=== PATIENT | male | born 1975 | race Caucasian/White ===

== ENCOUNTER 2023-11-17 06:18 | Day surgery (SDC) | payer MEDICAID ==
[2023-11-17] VITALS (8 sets, daily range): BP systolic 129–166; BP diastolic 64–105; PULSE 80–94; RESP 12–24; O2SAT 90–99
[~2023-11-17] VITALS: Ht 165.1 cm; Wt 108.9 kg
[~2023-11-17 06:18] MED LIST: ASPI-543 PO; ATOR40TA52 PO; CLON-499 PO; EMPA1TAB3 PO; HYDR25TA4 PO; LOSA50TA46 PO; METF-370 PO; METO25TA5 PO; TICA90TA PO
[2023-11-17] MEDS ORDERED: hydrALAZINE HCL 20 MG/ML VL IV ONE (08:45)
[2023-11-17] MEDS ORDERED: ANGIOMAX 250 MG VIAL IV ONE ×2 (09:07→10:52)
[2023-11-17] MEDS ORDERED: HEPARIN SODIUM (PORCINE) 5000 UNITS/ML 1ML VIAL ONE (09:07)
[2023-11-17] MEDS ORDERED: VERAPAMIL 2.5MG/ML INJ 2ML VIAL IV ONE (09:07)
[2023-11-17] MEDS ORDERED: SODIUM CHL 0.9% 50 ML ONE ×2 (09:08→10:52)
[2023-11-17] MEDS ORDERED: fentaNYL CITRATE 100 MCG/2 ML VL ONE (09:08)
[2023-11-17] MEDS ORDERED: LIDOCAINE 2%HCL (LOCAL ANESTH.) INJ 20ML MDV ONE (09:08)
[2023-11-17] MEDS ORDERED: IODIXANOL 320MG/ML 100ML BTL IV ONE ×3 (09:08→11:11)
[2023-11-17] MEDS ORDERED: MIDAZOLAM HCL 2MG/2ML 2ml VIAL (1mg/ml) ONE (09:36)
[2023-11-17] MEDS ORDERED: TICAGRELOR 90 MG TAB ONE ×2 (11:00→11:02)
[2023-11-17] MEDS ORDERED: ASPirin 325 MG TAB ONE (11:00)
[2023-11-17] MEDS ORDERED: hydrALAZINE HCL 20 MG/ML VL ONE (11:20)
== END 2023-11-17 14:06 | disposition home or self-care (01) ==
LOC: CATH 06:18
PROVIDERS: ATTEND Internal Medicine Cardiovascular Disease
DX: I25.10 Atherosclerotic heart disease of native coronary artery without angina pectoris (principal); E78.5 Hyperlipidemia, unspecified; E66.01 Morbid (severe) obesity due to excess calories; Z68.39 Body mass index [BMI] 39.0-39.9, adult; F12.90 Cannabis use, unspecified, uncomplicated; Z72.89 Other problems related to lifestyle; F17.210 Nicotine dependence, cigarettes, uncomplicated; Z79.82 Long term (current) use of aspirin; Z79.899 Other long term (current) drug therapy; Z98.890 Other specified postprocedural states
CPT/HCPCS: 92920; 93458; C1725; C1769; C1874; C1887; C1894; C9600; J0360; J0583; J1644; J2250; J3010; J7030; Q9967; 99152; 99153

== ENCOUNTER 2025-06-01 16:28 | Emergency (ER) | payer MEDICAID ==
[~2025-06-01] VITALS: Ht 165.1 cm; Wt 109.0 kg
[~2025-06-01 16:28] MED LIST changes: +LOSA-534 PO; -LOSA50TA46 PO
[2025-06-01 16:29] VITALS: BP 152/104; TEMP 98.1
--- NOTE | 2025-06-01 16:53 | ED.PDOC ---
Musculoskeletal HPI Comments This is a 49 year old male presenting to the ED with chief complaint of finger amputation. Patient reports that while working on his car transmission an hour ago, it had fell and crushed his left ring finger. Patient relays that the tip of his ring finger was amputated with the fingernail hanging. Patient states that he has no pain at this time and he is diabetic. Patient notes his last Tetanus was when he was a child. Patient denies any severe bleeding or further injury. Chief Complaint: S/P AMPUTATION OF FINGER Time Seen by MD: 16:51 Primary Care Provider: None Reviewed Notes: Nurses Notes, Medications, Allergies Allergies: Coded Allergies: NO KNOWN ALLERGIES (Unverified , 03/04/16) Home Meds Active Scripts Hydrocodone-Acetaminophen (Hydrocodone Bitartrate/AC 5-325 mg) 1 Tab Tab, 1 TAB PO DAILY for 5 Days, #5 TAB Prov:BRITNEY GONZALEZ MD 06/01/25 Amoxicillin Trihydrate (Amoxicillin) 500 Mg Tab, 1 TAB PO TID for 10 Days, #30 TAB Prov:BRITNEY GONZALEZ MD 06/01/25 Clindamycin Hcl (Clindamycin Hcl) 300 Mg Cap, 1 CAP PO TID for 10 Days, #30 CAP Prov:BRITNEY GONZALEZ MD 06/01/25 Reported Medications Ticagrelor Base (BRILINTA) 90 Mg Tab, 60 MG PO BID, TAB 11/16/23 Clonidine Hydrochloride (Clonidine HCl ER) 0.1 Mg Tab, 0.1 MG PO, TAB 11/16/23 Aspirin (Aspir-Low) 81 Mg Tab, 81 MG PO DAILY for 30 Days, MG 11/16/23 Empagliflozin (Jardiance) 25 Mg Tab, 25 MG PO DAILY, TAB 11/16/23 Hydrochlorothiazide (Hydrochlorothiazide) 25 Mg Tab, 25 MG PO DAILY for 30 Days, MG 11/16/23 Metoprolol Tartrate (Metoprolol Tartrate) 25 Mg Tab, 25 MG PO BID for 30 Days, MG 11/16/23 Atorvastatin Calcium (ATORVASTATIN CALCIUM) 40 Mg Tab, 1 TAB PO QPM, #90 TAB 3 Refills 11/16/23 Losartan Potassium (Losartan Potassium) 50 Mg Tab, 50 MG PO DAILY for 30 Days, MG 11/16/23 Metformin Hydrochloride (Metformin Hcl) 500 Mg Tab, 500 MG PO IBID for 30 Days, MG 11/16/23 Information Source: Patient Mode of Arrival: Ambulatory Location: Left Extremity Location: Finger 4 Timing: Hours Prehospital treatment: None Severity: Severe Able to Move Extremity: Yes Pain: None Mechanism: Crush Circumstances: Other (Car transmission fell) Onset of Symptoms: After Trauma DVT Risk Factors: NONE Last Tetanus: > 5 Years, Unknown Past Medical History PAST MEDICAL HISTORY: DM, HTN Surgical History: Denies all surgeries Family History Family History: Unknown Social History Smoker: Cigar Alcohol: Occasionally Drugs: Marijuana Lives In: Home Constitutional: denies: chills, diaphoresis, fatigue, fever, malaise, sweats, weakness, others EENTM: denies: blurred vision, double vision, ear bleeding, ear discharge, ear drainage, ear pain, ear ringing, eye pain, eye redness, hearing loss, mouth pain, mouth swelling, nasal discharge, nose bleeding, nose congestion, nose pain, photophobia, tearing, throat pain, throat swelling, voice changes, others Respiratory: denies: cough, hemoptysis, orthopnea, SOB at rest, shortness of breath, SOB with excertion, stridor, wheezing, others Cardiovascular: denies: chest pain, dizzy spells, diaphoresis, Dyspnea on exertion, edema, irregular heart beat, left arm pain, lightheadedness, palpitations, PND, syncope, others Gastrointestinal: denies: abdomen distended, abdominal pain, blood streaked bowels, constipated, diarrhea, dysphagia, difficulty swallowing, hematemesis, melena, nausea, poor appetite, poor fluid intake, rectal bleeding, rectal pain, vomiting, others Genitourinary: denies: burning, dysuria, flank pain, frequency, hematuria, incontinence, penile discharge, penile sore, pain, testicle pain, testicle swelling, urgency, others Neurological: denies: dizziness, fainting, headache, left sided numbness, left sided weakness, numbness, paresthesia, pre-existing deficit, right sided numbness, right sided weakness, seizure, speech problems, tingling, tremors, w eakness, others Musculoskeletal: denies: back pain, gout, joint pain, joint swelling, muscle pain, muscle stiffness, neck pain, others Integumetry: reports: wounds (left ring fingertip amputation); denies: bruises, change in color, change in hair/nails, dryness, laceration, lesions, lumps, rash, others Allergic/Immunocompromised: denies: Difficulty Healing, Frequent Infections, Hives, Itching, others Hematologic/Lymphatic: denies: anemia, blood clots, easy bleeding, easy bruising, swollen glands, others Endocrine: denies: excessive hunger, excessive sweating, excessive thirst, excessive urination, flushing, intolerance to cold, intolerance to heat, unexplained weight gain, unexplained weight loss, others Psychiatric: denies: anxiety, bipolar disorder, depression, hopeless, panic disorder, schizophrenia, sleepless, suicidal, others All Other Systems: Reviewed and Negative Physical Exam General Appearance: Moderate Distress, Normal HEENT: Normal ENT Inspection, Pharynx Normal, TMs Normal Neck: Full Range of Motion, Non-Tender, Normal, Normal Inspection Respiratory: Chest Non-Tender, Lungs Clear, No Accessory Muscle Use, No Respiratory Distress, Normal Breath Sounds Cardiovascular: No Edema, No JVD, No Murmur, No Gallop, Normal Peripheral Pulses, Regular Rate/Rhythm Breast Exam: Deferred Gastrointestinal: No Organomegaly, Non Tender, No Pulsatile Mass, Normal Bowel Sounds, Soft Genitalia: Deferred Pelvic: Deferred Rectal: Deferred Extremities: No calf tenderness, Normal capillary refill, Normal range of motion, Non-tender, No pedal edema, Other (Left 4th finger proximal amputation exposed) Musculoskeletal : Apperance: Normal Neurologic: Alert, roll winder II-XII nml as Tested, No Motor Deficits, Normal Affect, Normal Mood, No Sensory Deficits Cerebellar Function: Normal Reflexes: Normal Skin: Dry, Normal Color, Warm, Wounds (Left proximal 4th finger distal amputation) Peripheral Pulses: 3+ Radial (R), 3+ Radial (L) Lymphatic: No Adenopathy Was a procedure done? Was a procedure done?: No Differential Diagnosis EXT Differential Diagnosis: Fracture, Sprain, Strain X-Ray, Labs, Meds, VS Vital Signs Date Time Temp Pulse Resp B/P (MAP) Pulse Ox O2 Delivery O2 Flow Rate FiO2 06/01/25 16:29 98.1 81 18 152/104 100 98.1 Current Medications Medications (Trade) Dose Ordered Sig/Collin Route Start Time Stop Time Status Last Admin Diphtheria/ Tetanus/Acell Pertussis (Boostrix T-Dap) 0.5 ml ONCE ONCE IM 06/01/25 17:00 06/01/25 17:01 DC 06/01/25 17:07 Clindamycin HCl (Cleocin Capsule) 300 mg ONCE ONCE PO 06/01/25 17:00 06/01/25 17:01 DC 06/01/25 17:06 Ceftriaxone Sodium (Rocephin) 1,000 mg ONCE ONCE IM 06/01/25 17:00 06/01/25 17:01 DC 06/01/25 17:06 Lidocaine HCl (Xylocaine 1%) 1.9 ml ONCE ONCE IJ 06/01/25 17:15 06/01/25 17:16 DC 06/01/25 17:06 Patient alert. Crushing injury. On examination he does have amputation of the distal part of the left 4th finger. Blood pressure elevated. Was given clonidine. Was given tetanus. Was given antibiotics. No way to put the finger back in place. Total amputation. Soak the finger. Dressed. Was given prescription of amoxicillin clindamycin antibiotic. Explained to the patient that he is a diabetic and possibility of further amputation maybe needed. Was told to follow up with his primary care physician. Was told to come back if there is any problem. Time of 1ST Reevaluation: 17:50 Reevaluation 1ST: Improved Patient Education/Counseling: Diagnosis, Treatment Family Education/Counseling: Diagnosis, Treatment Departure 1 Departure Time of Disposition: 16:57 Impression: Primary Impression: Amputation finger Qualified Codes: S68.119A - Complete traumatic metacarpophalangeal amputation of unspecified finger, initial encounter Additional Impression: Hypertensive urgency Disposition: 01 HOME / SELF CARE / HOMELESS Condition: Good e-Prescriptions Hydrocodone-Acetaminophen (Hydrocodone Bitartrate/AC 5-325 mg) 1 Tab Tab 1 TAB PO DAILY for 5 Days, #5 TAB Prov: BRITNEY GONZALEZ MD 06/01/25 Amoxicillin Trihydrate (Amoxicillin) 500 Mg Tab 1 TAB PO TID for 10 Days, #30 TAB Prov: BRITNEY GONZALEZ MD 06/01/25 Clindamycin Hcl (Clindamycin Hcl) 300 Mg Cap 1 CAP PO TID for 10 Days, #30 CAP Prov: BRITNEY GONZALEZ MD 06/01/25 Discharged With: Self Critical Care Note Critical Care Time?: No Stability Stability form required: No Heart Score Heart Score: Heart Score Response (Comments) Value History N/A 0 EKG N/A 0 Age N/A 0 Risk Factors N/A 0 Troponin N/A 0 Total 0 I personally scribed for BRITNEY GONZALEZ MD ([email or web address]) on 06/01/25 at 16:53. Electronically submitted by Roman Cruz ([email or web address]). BRITNEY GONZALEZ MD Jun 01, 2025 16:53
[2025-06-01] MEDS ORDERED: HYDR-4902 PO (16:59)
[2025-06-01] MEDS ORDERED: AMOX500T3 PO (16:59)
[2025-06-01] MEDS ORDERED: CLIN1CAP70 PO (16:59)
[2025-06-01] MEDS: CLINDAMYCIN HCL 150 MG CAP PO ONE (17:06)
[2025-06-01] MEDS: cefTRIAXone SOD 1,000 MG VL IM ONE (17:06)
[2025-06-01] MEDS: LIDOCAINE 1% HCL (LOCAL ANESTH.) INJ 20ML MDV IJ ONE (17:06)
[2025-06-01] MEDS: TETANUS-DIPTH-ACEL PERTUSSIS 0.5ML SYR Tdap IM ONE (17:07)
[2025-06-01] MEDS: BACITRACIN TOP OINT 1 UD PKG TOP ONE (17:48)
--- NOTE | 2025-06-01 17:48 | DVH ---
EXAM: XY L HAND 2V XRAY CLINICAL HISTORY: amputation COMPARISON: None TECHNIQUE: XY L HAND 2V XRAY Findings/Impression: 2 views of the left hand. Status post amputation of the mid aspect of the 4th distal phalanx with small fragment in the remaini ng tip of the 4th digit. [id number] soft tissue edema of the 4th digit. There is no evidence of dislocation, blastic, or lytic lesions. No radiopaque foreign bodies.
[2025-06-01 18:14] VITALS: PULSE 79; RESP 19; O2SAT 100
== END 2025-06-01 18:14 | disposition home or self-care (01) ==
LOC: ER 16:28
DX: S68.115A Complete traumatic metacarpophalangeal amputation of left ring finger, initial encounter (principal); I16.0 Hypertensive urgency; F17.290 Nicotine dependence, other tobacco product, uncomplicated; F10.90 Alcohol use, unspecified, uncomplicated; F12.90 Cannabis use, unspecified, uncomplicated; I10 Essential (primary) hypertension; E11.9 Type 2 diabetes mellitus without complications; Z79.899 Other long term (current) drug therapy; Z79.82 Long term (current) use of aspirin; Z79.84 Long term (current) use of oral hypoglycemic drugs; W19.XXXA Unspecified fall, initial encounter; Y93.89 Activity, other specified; Y92.89 Other specified places as the place of occurrence of the external cause; Y99.0 Civilian activity done for income or pay; Y90.9 Presence of alcohol in blood, level not specified
CPT/HCPCS: 73120; 82947; 90471; 90715; 96372; 99284; J0696; J2003

== ENCOUNTER 2025-06-03 10:41 | Emergency (ER) | payer MEDICAID ==
[~2025-06-03] VITALS: Ht 165.1 cm; Wt 110.2 kg
[~2025-06-03 10:41] MED LIST changes: +AMOX500T3 PO; +CLIN1CAP70 PO; +HYDR-4902 PO
--- NOTE | 2025-06-03 11:42 | ED.PDOC ---
History of Present Illness HPI Comments 49 y/o M returns to the ED for wound check evaluation. Patient states on returning to the ED following previous visit 2x days ago for a partial amputation to his finger tip of his 4th digit on his left hand after a motor transmission fell onto of hit. Patient denies any further acute symptoms. Chief Complaint: Wound Check Time Seen by MD: 11:20 Primary Care Provider: None Reviewed Notes: Nurses Notes, Medications, Allergies Allergies: Coded Allergies: NO KNOWN ALLERGIES (Unverified , 03/04/16) Home Meds Active Scripts Hydrocodone-Acetaminophen (Hydrocodone Bitartrate/AC 5-325 mg) 1 Tab Tab, 1 TAB PO DAILY for 5 Days, #5 TAB Prov:BRITNEY GONZALEZ MD 06/01/25 Amoxicillin Trihydrate (Amoxicillin) 500 Mg Tab, 1 TAB PO TID for 10 Days, #30 TAB Prov:BRITNEY GONZALEZ MD 06/01/25 Clindamycin Hcl (Clindamycin Hcl) 300 Mg Cap, 1 CAP PO TID for 10 Days, #30 CAP Prov:BRITNEY GONZALEZ MD 06/01/25 Reported Medications Ticagrelor Base (BRILINTA) 90 Mg Tab, 60 MG PO BID, TAB 11/16/23 Clonidine Hydrochloride (Clonidine HCl ER) 0.1 Mg Tab, 0.1 MG PO, TAB 11/16/23 Aspirin (Aspir-Low) 81 Mg Tab, 81 MG PO DAILY for 30 Days, MG 11/16/23 Empagliflozin (Jardiance) 25 Mg Tab, 25 MG PO DAILY, TAB 11/16/23 Hydrochlorothiazide (Hydrochlorothiazide) 25 Mg Tab, 25 MG PO DAILY for 30 Days, MG 11/16/23 Metoprolol Tartrate (Metoprolol Tartrate) 25 Mg Tab, 25 MG PO BID for 30 Days, MG 11/16/23 Atorvastatin Calcium (ATORVASTATIN CALCIUM) 40 Mg Tab, 1 TAB PO QPM, #90 TAB 3 Refills 11/16/23 Losartan Potassium (Losartan Potassium) 50 Mg Tab, 50 MG PO DAILY for 30 Days, MG 11/16/23 Metformin Hydrochloride (Metformin Hcl) 500 Mg Tab, 500 MG PO IBID for 30 Days, MG 11/16/23 Information Source: Patient Mode of Arrival: Ambulatory Severity: Moderate Timing: Hours Duration: Since onset Prehospital treatment: None Past Medical History PAST MEDICAL HISTORY: DM, HTN Surgical History: Denies all surgeries Family History Family History: Unknown Social History Smoker: Cigar Alcohol: Occasionally Drugs: Marijuana Lives In: Home All Other Systems: Reviewed and Negative (As per HPI) Physical Exam General Appearance: No Apparent Distress, Obese HEENT: Normal ENT Inspection, Pharynx Normal, TMs Normal Neck: Full Range of Motion, Non-Tender, Normal, Normal Inspection Respiratory: Chest Non-Tender, Lungs Clear, No Accessory Muscle Use, No Respiratory Distress, Normal Breath Sounds Cardiovascular: No Edema, No JVD, No Murmur, No Gallop, Normal Peripheral Pulses, Regular Rate/Rhythm Breast Exam: Deferred Gastrointestinal: No Organomegaly, Non Tender, No Pulsatile Mass, Normal Bowel Sounds, Soft, Other (Obesity) Genitalia: Deferred Pelvic: Deferred Rectal: Deferred Extremities: No calf tenderness, Normal capillary refill, Normal inspection, Normal range of motion, Non-tender, No pedal edema Musculoskeletal : Location: Right Extremity Location: Finger 2, Other (Fingertip amputation) Apperance: Other (Fingertip amputation) Neurologic: Alert, stage electrician helper II-XII nml as Tested, No Motor Deficits, Normal Affect, Normal Mood, No Sensory Deficits Cerebellar Function: Normal Reflexes: Normal Skin: Dry, Normal Color, Warm Peripheral Pulses: 1+ carotid (R), 1+ carotid (L) Lymphatic: No Adenopathy Was a procedure done? Was a procedure done?: Yes Sedation Sedation?: No Other Procedure Procedure Dressing change for the fingertip amputation for follow up amputation done two days ago Differential Dx Considerations may include: wound check, secondary infection, cellulitis, among others X-Ray, Labs, Meds, VS Vital Signs Date Time Temp Pulse Resp B/P (MAP) Pulse Ox O2 Delivery O2 Flow Rate FiO2 06/03/25 10:43 97.4 74 16 123/79 98 97.4 X-Ray, Labs, Meds, VS Comment Course in the emergency department uneventful The patient had fingertip amputation two days ago and came in for follow up The fingertip is healing no complication we will need to clean up the finger and put a dressing and tubular gauze Patient we will be discharged home to follow up with his doctor Time of 1ST Reevaluation: 11:50 Reevaluation 1ST: Unchanged Time of 2ND Reevaluation: 11:55 Reevaluation 2ND: Improved Consultation: PCP Patient Education/Counseling: Diagnosis, Treatment, Prognosis, Need For Follow Up Family Education/Counseling: Diagnosis, Treatment, Prognosis, Need For Follow Up, No Family Present SEPSIS Sepsis Screen Date sepsis recognized/suspect: Jun 03, 2025 Time Sepsis recognized/suspect: 104 Recent Procedure: No On Antibiotic Therapy: Yes Respiratory Rate >20: No Heart Rate >90: No Temp<36 C (96.8 F) or >38.3 C: No SBP <90 or MAP <65 mmHG: No New Acute Mental Status Change: No Is the patient on CPAP, BIPAP,: No Vital Signs Date Time Temp Pulse Resp B/P (MAP) Pulse Ox O2 Delivery O2 Flow Rate FiO2 06/03/25 10:43 97.4 74 16 123/79 98 97.4 Departure 1 Departure Time of Disposition: 11:55 Impression: Primary Impression: Traumatic amputation of fingertip Qualified Codes: S68.119D - Complete traumatic metacarpophalangeal amputation of unspecified finger, subsequent encounter Disposition: HOME / SELF CARE / HOMELESS Condition: Fair Additional Instructions: Continue present management and follow up with your doctor Discharged With: Self Critical Care Note Critical Care Time?: No Stability Stability form required: No Heart Score Heart Score: Heart Score Response (Comments) Value History N/A 0 EKG N/A 0 Age 45-64 1 Risk Factors 1 or 2 risk factors 1 Troponin N/A 0 Total 2 I personally scribed for STAR NOGUERA MD ([email or web address]) on 06/03/25 at 11:42. Electronically submitted by Cain Ling ([email or web address]). STAR NOGUERA MD Jun 03, 2025 11:42
[2025-06-03 12:05] VITALS: BP 116/80; PULSE 76; RESP 18; TEMP 98.2; O2SAT 100
== END 2025-06-03 12:06 | disposition home or self-care (01) ==
LOC: ER 10:41
DX: S68.115D Complete traumatic metacarpophalangeal amputation of left ring finger, subsequent encounter (principal); I10 Essential (primary) hypertension; E11.9 Type 2 diabetes mellitus without complications; F17.290 Nicotine dependence, other tobacco product, uncomplicated; Z79.82 Long term (current) use of aspirin; Z79.84 Long term (current) use of oral hypoglycemic drugs; Z79.899 Other long term (current) drug therapy; X58.XXXD Exposure to other specified factors, subsequent encounter